=== PATIENT | female | born 1945 | race Caucasian/White ===

== ENCOUNTER 2020-06-07 12:44 | Emergency (ER) | payer MEDICARE, BC ==
[~2020-06-07] VITALS: Ht 165.1 cm; Wt 55.0 kg
[2020-06-07 12:45] VITALS: BP 60/27; PULSE 33; TEMP 97.4
[2020-06-07 13:29] LABS: BASO # 0.1 (0.0-0.2); EOS # 0.3 (0.0-0.7); EOS % 3.1 % (0-4.0); GRAN # 3.5 (1.4-6.5); GRAN % 38.3 % (42.2-75.2); HEMOGLOBIN 11.3 g/dl (12.5-16.0); LYMPH # 4.9 (1.2-3.4); LYMPH % 52.9 % (20.0-51.0); MEAN CELL VOLUME 105 fl (80.0-100.0); MEAN CORPUSCULAR HEMOGLOBIN 33 pg (27.0-31.0); MEAN CORPUSCULAR HGB CONC 31 g/dl (33.0-37.0); MEAN PLATELET VOLUME 11.1 fl (7.4-10.4); MONO # 0.3 (0.1-0.6); MONO % 3.3 % (1.7-9.3); PLATELET COUNT 190 K/mm3 (130-400); RED BLOOD COUNT 3.48 M/mm3 (4.10-5.30); REDCELL DISTRIBUTION WIDTH-CV 12.4 % (11.5-14.5)
[2020-06-07 13:34] LABS: HEMATOCRIT 36.6 % (37.0-47.0); INR 1.2 (0.8-3.0); PROTHROMBIN TIME 13.4 SECONDS (9.7-12.8)
[2020-06-07 13:37] LABS: PARTIAL THROMBOPLASTIN TIME 37.7 SECONDS (26.0-37.0)
[2020-06-07 13:39] LABS: ALBUMIN 2.9 gm/dL (3.5-5.0); BILIRUBIN,TOTAL 0.4 mg/dL (0.0-1.0); CALCIUM 8.2 mg/dL (8.4-10.2); CREATININE, serum 1.09 (0.52-1.25); TOTAL PROTEIN 5.3 gm/dL (6.4-8.2)
[2020-06-07 13:48] LABS: TROPONIN-I 0.022 ng/mL (0.000-0.035)
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
--- NOTE | 2020-06-07 16:10 | NUR ---
[facility]#[id number]
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
== END 2020-06-07 14:22 ==
LOC: COL.ER 12:44 → EDBD 12:48 → COL.ER 14:22
PROVIDERS: Family Medicine
DX: I21.9 Acute myocardial infarction, unspecified (principal); I46.9 Cardiac arrest, cause unspecified; R57.0 Cardiogenic shock
CPT/HCPCS: J0171; J0461; J1644; J7030; J7060